=== PATIENT | male | born 1990 | race Two or more races ===

== ENCOUNTER 2020-02-21 22:35 | Emergency (ER) | payer SELFPAY ==
[~2020-02-21] VITALS: Ht 172.7 cm; Wt 79.4 kg
[2020-02-21 22:45] VITALS: BP 121/76
[2020-02-21] MEDS ORDERED: Tetanus/Diptheria/Pertussis IM ONE (23:00)
[2020-02-21] MEDS ORDERED: Lidocaine 1% 10mg/ml/EPI 0.01mg/ml 30ml INJ ONE ×2 (23:00)
[2020-02-21 23:30] VITALS: BP 120/68
[2020-02-21] MEDS ORDERED: CEPHALEXIN500 MG ORAL (23:30)
--- NOTE | 2020-02-21 23:31 | Emergency Room Report ---
History of Present Illness General Chief Complaint: Laceration Source: Patient Present Illness HPI Is a 30-year-old male who is right-hand dominant. He presents with chief plaint of laceration to his left forearm and wrist area. He was working on his car and a metal piece is dorsal aspect of his left forearm. He is tender laceration over that area. No loss of conscious.. No other injury. Denies any other trauma. Bleeding controlled. Minimal pain. Allergies: Coded Allergies: No Known Allergies (Unverified , 02/21/20) COVID-19 Screening Contact w/high risk pt: No Experienced COVID-19 symptoms?: No COVID-19 Testing performed [employer]: No Patient History Past Medical History: see triage record, old chart reviewed Past Surgical History: none Pertinent Family History: none Social History: Denies: smoking Immunizations: other Reviewed Nursing Documentation: PMH: Agreed; PSxH: Agreed Nursing Documentation-PM Past Medical History: No Stated History Review of Systems Eye: Denies: eye pain, blurred vision ENT: Denies: ear pain, nose congestion, throat swelling Respiratory: Denies: cough, shortness of breath Cardiovascular: Denies: chest pain, palpitations Gastrointestinal: Denies: abdominal pain, diarrhea, nausea, vomiting Musculoskeletal: Denies: back pain, joint pain Skin: Denies: rash Neurological: Denies: headache, numbness Endocrine: Denies: increased thirst, increased urine Hematologic/Lymphatic: Denies: easy bruising All Other Systems: negative except mentioned in HPI Physical Exam Vital Signs Date Time Temp Pulse Resp B/P (MAP) Pulse Ox O2 Delivery O2 Flow Rate FiO2 02/21/20 22:40 98.2 73 18 112/77 (89) 97 Room Air Vitals normal Sp02 EP Interpretation: reviewed, normal General Appearance: well appearing, no apparent distress, alert Head: normocephalic, atraumatic Eyes: bilateral eye PERRL, bilateral eye EOMI ENT: hearing grossly normal, normal pharynx Neck: full range of motion, supple, no meningismus Respiratory: chest non-tender, lungs clear, normal breath sounds Cardiovascular #1: regular rate, rhythm, no murmur Gastrointestinal: normal bowel sounds, non tender, no mass, no organomegaly, no bruit, non-distended Musculoskeletal: back normal, normal range of motion, gait/station normal, other - Left forearm: There is a 9 cm laceration of the distal forearm to the w rist area. No foreign body. No tendon laceration. No arterial injury. Full range of motion of the wrist. Sensation normal. Pulse normal. Psychiatric: mood/affect normal Procedures Laceration/Wound Repair Laceration/Wound Repair : Consent: Verbal Wound Location: upper extremity Wound's Depth, Shape: linear Wound Length (cm): 9 Wound Explored: clean Irrigated w/ Saline (ccs): 1000 Betadine Prep?: Yes Anesthesia: 1% Lidocaine Volume Anesthetic (ccs): 8 Wound Repaired With: sutures Suture Size/Type: 4:0, proline Number of Sutures: 11 Sterile Dressing Applied?: Yes Patient Tolerated: Well Complications: None Medical Decision Making Diagnostic Impression: Primary Impression: Laceration ER Course Patient with a left forearm/wrist laceration. No foreign body or tendon laceration. Increased risk for infection because of his line of work. Will discharge home. Last Vital Signs Date Time Temp Pulse Resp B/P (MAP) Pulse Ox O2 Delivery O2 Flow Rate FiO2 02/21/20 22:45 98.5 67 18 121/76 98 Room Air Status: improved Disposition: HOME, SELF-CARE Condition: Stable Scripts Cephalexin* (KEFLEX*) 500 Mg Capsule 500 MG ORAL TID, #21 CAP Prov: Pato Singh MD 02/21/20 Referrals: NOT CHOSEN IPA/,REFERRING (PCP) Patient Instructions: Laceration Care, Adult Additional Instructions: Wound clean. Apply antibiotic ointment after cleaning with hydrogen peroxide. Keep wound covered. Follow-up with your doctor in 7 days. Sutures out in 7 days. Return if symptoms worsen. Pato Singh MD Feb 21, 2020 23:31
== END 2020-02-21 23:30 | disposition home or self-care (01) ==
LOC: EMR 22:50
DX: S51.812A Laceration without foreign body of left forearm, initial encounter (principal); W26.9XXA Contact with unspecified sharp object(s), initial encounter; Y92.9 Unspecified place or not applicable; Z23 Encounter for immunization
CPT/HCPCS: 90471; 90715; 99283